=== PATIENT | female | born 1980 | race Two or more races ===

== ENCOUNTER 2019-05-25 01:04 | Emergency (ER) | payer SELFPAY ==
[~2019-05-25] VITALS: Ht 152.4 cm; Wt 66.0 kg
[2019-05-25] MEDS ORDERED: SODIUM CHLORIDE 0.9% 1,000 ML IV ONE (02:15)
[2019-05-25] MEDS ORDERED: FAMOTIDINE 20MG/2ML VIAL IV ONE (02:30)
[2019-05-25 02:51] LABS: BASOPHILS % 0.8 % (0.0-2.0); CHLORIDE 107 mEq/L (98-107); EOSINOPHILS % 2.4 % (0.0-5.0); HEMATOCRIT. 41.3 % (36.0-48.0); HEMOGLOBIN. 13.4 g/dL (12.0-16.0); LYMPHOCYTES % 10.9 % (20.0-50.0); MEAN CORPUSCULAR HEMOGLOBIN 28.1 pg (28.0-32.0); MEAN CORPUSCULAR VOLUME 86.7 fL (81.0-99.0); MEAN PLATELET VOLUME 10.3 fl (7.4-10.4); MONOCYTES % 4.8 % (2.0-8.0); NEUTROPHILS % 81.1 % (40.0-76.0); PLATELET 229 x1000/uL (130-400); RED BLOOD CELL COUNT 4.76 mill/uL (4.2-5.4); RED CELL DISTRIBUTION WIDTH 12.4 % (11.6-14.6)
[2019-05-25 03:25] VITALS: BP 118/78
== END 2019-05-25 03:48 | disposition home or self-care (01) ==
LOC: ER 01:04
DX: K29.70 Gastritis, unspecified, without bleeding (principal)
CPT/HCPCS: 36415; 80053; 81025; 83690; 85025; 85610; 96361; 96374; 99283; J3490; J7030; Z7610